=== PATIENT | male | born 1960 | race Caucasian/White ===

== ENCOUNTER 2025-05-24 07:42 | Emergency (ER) | payer OTHER, SELFPAY ==
--- NOTE | ~2025-05-24 | CT_ITS ---
EXAMINATION: CT cervical spine wo con COMPARISON: None HISTORY: posterior neck pain, right kitchen work supervisor neck swelling TECHNIQUE: Axial images were obtained through the spine without IV contrast. Coronal, sagittal reconstruction images were obtained from the axial views. CT scan performed using dose optimization techniques including the following automated exposure control; adjustment of mA and/or kV; use of iterative reconstruction technique. Automatic exposure control was used to reduce radiation dose. Permanent radiation dose record is archived to PACS. FINDINGS: Grade 1 anterolisthesis of C3 on C4 C4 on C5, no fracture is identified. There is severe loss of disc height at C6-7 and C7-T1 with moderate to severe canal and foraminal stenosis. Soft tissues unremarkable. Impression: No acute abnormality. Reviewed, dictated and finalized at location P. L MANAGER Impression: No acute abnormality.
[2025-05-24 08:04] VITALS: BP 160/95; PULSE 69; RESP 17; TEMP 36.6; O2SAT 100
--- NOTE | 2025-05-24 09:17 | ED_ITS ---
HPI - Neck Pain/Injury General Chief Complaint: Neck Pain/Injury Stated Complaint: Neck Pain x weeks Time Seen by Provider: 05/24/25 08:01 Source: patient and RN notes reviewed Mode of arrival: ambulatory History of Present Illness HPI Narrative: THis is a 64 year old male with history of methamphetamine abuse who presents for evaluation of chronic neck pain. He states that he has been having posterior neck pain for 1 year. He states that he has been having worsening pain over the past week. HE reports he his hearing noises when he moves his neck. He denies any injuries. HE is poor historian. He has not been taking any medications or treatments for pain. MD complaint: neck pain Related Data Allergies Allergy/AdvReac Type Severity Reaction Status Date / Time lisinopril Allergy Other Verified 05/24/25 07:43 codeine AdvReac Vomiting Verified 05/24/25 07:43 [facility] Past Medical History Medical History (Updated 05/24/25 @ 09:34 by Megan Robertson MD) Hypertension Surgical History Surgical History (Updated 05/24/25 @ 09:29 by Megan Robertson MD) No pertinent past surgical history Social History Social History (Updated 05/24/25 @ 09:29 by Megan Robertson MD) Substance use type: marijuana and methamphetamine Exam Const: General: no acute distress and alert Nutritional Appearance: well nourished Orientation/consciousness: patient oriented x3 HENMT: Head: normal to inspection Throat: posterior oropharynx normal and uvula midline Eyes: Pupils: Equal, round and reactive pupils present EOM: EOMs intact bilaterally Neck: Neck: no lymphadenopathy and no meningeal signs Other: crepitus felt in posterior neck Resp: Effort & Inspection: normal respiratory effort Auscultation: clear to auscultation bilaterally Cardio: Rate: regular rate Rhythm: regular rhythm Heart sounds: no murmurs Back/Spine/Pelvis: Cervical Spine: No Cervical spine scars present, cervical spasm and No step off deformity Skin: General skin exam: normal color Rashes: no rashes Neuro: General: patient oriented x3 and moves all extremities Cranial nerves: Yes CN's II-XII intact bilaterally and Yes Nystagmus not present Speech: normal speech Motor exam (neuro): 5/5 motor strength present throughout Sensory Exam: normal sensation Extrem: General: normal to inspection and no clubbing, cyanosis or edema Psych: Mental Status: mental status grossly normal Affect: normal affect Attitude: cooperative Course Reevaluation(s) Reevaluation #1: I Discussed with patient CT shows severe degenerative disease and he will need to follow up with neurosurgery. He is not having any signs of cord impingement at this time. Date: 05/24/25 Time: 09:31 Vital Signs Vital signs: Vital Signs Temperature 97.8 F 05/24/25 08:04 Pulse Rate 69 05/24/25 08:04 Respiratory Rate 17 05/24/25 08:04 Blood Pressure 160/95 H 05/24/25 08:04 Pulse Oximetry 100 05/24/25 08:04 Oxygen Delivery Room Air 05/24/25 08:04 Temperature 97.8 F 05/24/25 08:04 Pulse Rate 71 05/24/25 10:14 Respiratory Rate 14 05/24/25 10:14 Blood Pressure 156/78 H 05/24/25 10:14 Pulse Oximetry 100 05/24/25 10:14 Oxygen Delivery Room Air 05/24/25 08:04 MDM Differential Diagnosis Differential Diagnosis: cervical radiculopathy, DDD, bulging disc, cervical spine fracture Imaging Data Radiologist's impression: ITS Impressions Cervical Spine CT 05/24/25 08:28 Impression: No acute abnormality. Discharge Plan Discharge Clinical Impression: Disc disorder of cervical region, Spinal stenosis Patient Disposition: Home Condition: Stable Instructions: Antibiotic Form, Cervical Radiculopathy (ED) Additional Instructions: I recommend that you make appointment with neurosurgeon and primary care provider for further pain management Patient Language: Tamazight Prescriptions: New meloxicam 7.5 mg tablet 7.5 mg PO DAILY Qty: 14 0RF methylprednisolone [Medrol (Ovidio)] 4 mg tablets,dose pack See Rx Instructions .ROUTE .COMPLEX Qty: 21 0RF Rx Instructions: for 6 days cyclobenzaprine 5 mg tablet 5 mg PO TID PRN (Reason: muscle spasm) Qty: 10 0RF Follow-up/Referrals: Kingston Cárdenas MD [Physician, Family Practice] Matt Lerma MD [Physician, Neurosurgery] PHYSICIAN,[employer] [Primary Care Provider, Internal Medicine]
[2025-05-24 10:14] VITALS: BP 156/78; PULSE 71; RESP 14; O2SAT 100
== END 2025-05-24 10:26 | disposition home or self-care (01) ==
PROVIDERS: Emergency Provider General Practice
DX: M48.02 Spinal stenosis, cervical region (principal); M50.921 Unspecified cervical disc disorder at C4-C5 level; I10 Essential (primary) hypertension
CPT/HCPCS: 72125; 99284